=== PATIENT | male | born 1985 | race American Indian/Alaskan Native ===

== ENCOUNTER 2017-02-01 13:06 | Emergency (ER) | payer SELFPAY ==
[2017-02-01 14:36] VITALS: BP 117/80
[2017-02-01] MEDS ORDERED: KEFLEX PO ONE (14:54)
[2017-02-01] MEDS ORDERED: BOOSTRIX IM ONE (14:54)
[2017-02-01] MEDS ORDERED: BACTRIM DS PO ONE (14:54)
--- NOTE | 2017-02-01 14:59 | Emergency Department Report ---
ED General Adult HPI - General Chief complaint: Skin/Abscess/Foreign Body Stated complaint: LT UNDER ARM PAIN Time Seen by Provider: 02/01/17 14:38 Source: patient Mode of arrival: Ambulatory Limitations: No Limitations - History of Present Illness Initial comments: PT c/o boil under L arm. PT states it has been there for two days. PT states he looked on line and read that warm compresses help. PT states after doing warm compresses, site drained on it's own. PT states he packed site with cotton ball. PT states pain decreased but he is still having some drainage and redness MD Complaint: boil -: Gradual, days(s) (2) Location: left, upper extremity (Left axilla ) Quality: aching Consistency: constant Improves with: other (after site drained ) Worsens with: movement, other (palpitation ) Associated Symptoms: rash (redness to skin ). denies: fever/chills, nausea/ vomiting Treatments Prior to Arrival: none - Related Data Previous Rx's Medication Instructions Recorded Last Taken Type Cephalexin [Keflex] 500 mg PO Q6HR #40 capsule 02/01/17 Unknown Rx Mupirocin [Bactroban 2%] 1 applic TP TID 5 Days 02/01/17 Unknown Rx Sulfamethoxazole/Trimethoprim 1 each PO BID #20 tablet 02/01/17 Unknown Rx [Bactrim DS TAB] Allergies Allergy/AdvReac Type Severity Reaction Status Date / Time No Known Allergies Allergy Unverified 02/01/17 14:32 ED Review of Systems ROS: Stated complaint: LT UNDER ARM PAIN Other details as noted in HPI Comment: All other systems reviewed and negative Constitutional: denies: chills, fever Gastrointestinal: denies: nausea, vomiting Skin: as per HPI, change in color, other ("hole" to L axilla ) ED Past Medical Hx - Past Medical History Previous Medical History?: No - Surgical History Past Surgical History?: No - Social History Smoking Status: Never Smoker Substance Use Type: None - Medications Home Medications: Home Medications Medication Instructions Recorded Confirmed Last Taken Type Cephalexin [Keflex] 500 mg PO Q6HR #40 capsule 02/01/17 Unknown Rx Mupirocin [Bactroban 2%] 1 applic TP TID 5 Days 02/01/17 Unknown Rx Sulfamethoxazole/Trimethoprim 1 each PO BID #20 tablet 02/01/17 Unknown Rx [Bactrim DS TAB] ED Physical Exam - General Limitations: No Limitations General appearance: alert, in no apparent distress - Head Head exam: Present: atraumatic, normocephalic, normal inspection - Eye Eye exam: Present: normal appearance, PERRL, EOMI. Absent: conjunctival injection - ENT ENT exam: Present: normal exam, normal external ear exam - Neck Neck exam: Present: normal inspection, full ROM. Absent: tenderness, meningismus, lymphadenopathy - Respiratory Respiratory exam: Present: normal lung sounds bilaterally. Absent: accessory muscle use - Cardiovascular Cardiovascular Exam: Present: regular rate, normal rhythm - Extremities Exam Extremities exam: Present: full ROM, tenderness (L axilla ) - Back Exam Back exam: Present: normal inspection, full ROM - Neurological Exam Neurological exam: Present: alert, oriented X3, normal gait - Psychiatric Psychiatric exam: Present: normal affect, normal mood - Skin Skin exam: Present: warm, dry, erythema (to L axilla, + tenderness, + warmth ), other (pt has open wound to L axilla, it appears as a drained abscess with surrounding cellulitis ). Absent: intact, normal color ED Course Vital Signs 02/01/17 14:32 Temperature 98.5 F Pulse Rate 61 Respiratory 16 Rate Blood Pressure 117/80 O2 Sat by Pulse 100 Oximetry - Reevaluation(s) Reevaluation #1: 02/01/17 15:03 PT aware of dx and plan of care. PT aware he is to take antibiotics as prescribed. PT given strict return precautions. PT has no questions at this time. - Pulse Oximetry Interpretation Digit-Finger Initial Pulse Oximetry Readin Actions Taken: none ED Medical Decision Making - Differential Diagnosis abscess, cellulitis Critical Care Time: No Critical care attestation.: If time is entered above; I have spent that time in minutes in the direct care of this critically ill patient, excluding procedure time. ED Disposition Clinical Impression: Cellulitis of axilla, left, Need for Tdap vaccination Disposition: TO HOME OR SELFCARE Is pt being admited?: No Does the pt Need Aspirin: No Condition: Stable Instructions: Cellulitis (ED), Hand Hygiene (ED), Abscess (ED) Additional Instructions: Continue warm compresses wash site with mild antibacterial soap, pat dry, and apply antibiotic ointment, cover with non stick gauze Take antibiotics as prescribed return in 2 days for recheck Return sooner if your pain increases, you have fevers, chills, nausea or vomiting or concerns Prescriptions: Cephalexin [Keflex] 500 mg PO Q6HR #40 capsule Mupirocin [Bactroban 2%] 1 applic TP TID 5 Days Sulfamethoxazole/Trimethoprim [Bactrim DS TAB] 1 each PO BID #20 tablet Referrals: [facility] [Outside] - 3-5 Days PRIMARY CAREMD [Primary Care Provider] - 3-5 Days BECCA PRESTON MD [Staff Physician] - 3-5 Days Forms: Accompanied Note, Work/School Release Form(ED)
== END 2017-02-01 15:51 | disposition home or self-care (01) ==
LOC: ED 13:06
DX: L03.112 Cellulitis of left axilla (principal)
CPT/HCPCS: 90471; 90715